=== PATIENT | female | born 1980 ===

== ENCOUNTER 2017-11-15 10:03 | Emergency (ER) | payer MEDICAID ==
[2017-11-15 10:19] VITALS: RESP 18; TEMP 98; O2SAT 100
[2017-11-15 10:20] VITALS: BMI 23.5
--- NOTE | 2017-11-15 12:06 | ED PDOC ---
HPI: Female Pain Time Seen by Provider: 11/15/17 10:23 Chief Complaint (Nursing): Abdominal Pain Chief Complaint (Provider): lower abdominal pain and painful urination History Per: Patient History/Exam Limitations: no limitations Onset/Duration Of Symptoms: Days (x5, since Wednesday) Current Symptoms Are (Timing): Still Present Quality Of Discomfort: "Pain" Additional Complaint(s): Tanya Aragon is a 36 year old female, with no significant past medical history, who presents to the emergency department complaining of lower abdominal pain and painful urination onset since Wednesday. Patient reports pain with urination but not burning and also states she notices the pain when walking. Patient states for the last week or so she has noted anal pain when going to bathroom and wiping. She denies any vaginal discharge or bleeding, nausea, vomit, hematuria or sick contacts. Patient recently moved here from [facility]. LMP July 19 but states she has taken multiple negative test. No further medical complaints. PMD: None provided. Last Menstral Period: July 19 Past Medical History Reviewed: Historical Data, Nursing Documentation, Vital Signs Vital Signs: Last Vital Signs Temp 98 F 11/15/17 10:18 Pulse 63 11/15/17 10:18 Resp 18 11/15/17 10:18 BP 104/59 L 11/15/17 10:18 Pulse Ox 100 11/15/17 10:18 - Medical History PMH: No Chronic Diseases - Family History Family History: States: Unknown Family Hx - Home Medications Home Medications: Ambulatory Orders Medication Instructions Recorded Naproxen 500 mg PO BID #28 ect 11/15/17 - Allergies Allergies/Adverse Reactions: Allergies Allergy/AdvReac Type Severity Reaction Status Date / Time No Known Allergies Allergy Verified 11/15/17 11:11 Review of Systems ROS Statement: Except As Marked, All Systems Reviewed And Found Negative Gastrointestinal: Positive for: Abdominal Pain (lower ). Negative for: Nausea, Vomiting Genitourinary Female: Positive for: Other (painful urination and anal pain). Negative for: Hematuria, Vaginal Discharge, Vaginal Bleeding Physical Exam - Reviewed Nursing Documentation Reviewed: Yes Vital Signs Reviewed: Yes - Physical Exam Appears: Positive for: No Acute Distress Head Exam: Positive for: ATRAUMATIC, NORMAL INSPECTION, NORMOCEPHALIC Skin: Positive for: Normal Color, Warm, Dry Eye Exam: Positive for: Normal appearance, EOMI, PERRL Neck: Positive for: Painless ROM Cardiovascular/Chest: Positive for: Regular Rate, Rhythm. Negative for: Murmur Respiratory: Positive for: Normal Breath Sounds. Negative for: Respiratory Distress Gastrointestinal/Abdominal: Positive for: Soft, Tenderness (bilateral lower quadrant and suprapubic tenderness on palpation) Pelvic Exam: Positive for: No Cerv. Motion Tender, Discharge (appearance of physiologic discharge.), Tender Adnexa (Palpation of adnexa elicits pain bilaterally, worst on the right which patient describes same pain as palpation of abdomen), Other (Cervix looks enlarged. However, no erythema, bleeding or discharge from cervix) Back: Positive for: Normal Inspection. Negative for: L CVA Tenderness, R CVA Tenderness Rectal: Positive for: Hemorrhoids (External rectal shows external non-inflammed , non-thrombosed hemorrhoid. No bleeding or rectal discharge) Extremity: Positive for: Normal ROM (upper and lower extremities). Negative for : Deformity, Swelling Neurologic/Psych: Positive for: Alert, Oriented - Laboratory Results Result Diagrams: 11/15/17 12:20 11/15/17 12:20 - ECG O2 Sat by Pulse Oximetry: 100 (RA) Pulse Ox Interpretation: Normal Medical Decision Making Medical Decision Making: Time: 10:23 Initial Impression: Work up for abdominal pain most likely caused by UTI. Labs, UA sent. Will consider imaging if pain not improved and no UTI. Initial Plan: --VBG --CMP --Lipase --CBC w/ differential --PTT --PT --Chest portable [RAD] --Toradol 30 mg IVP --Urine --UA --Reevaluation 13:30 -Labs and UA are normal. Will work up for ovarian or adnexal pathology, GC- Chlamydia swab sent and CT of abdomen/pelvis. Patient also shows transvaginal US paperwork from x1 month ago on 10/15 which she received as part of work up due to amenorrhea. US was normal, however she wasn't having symptoms when US was done. 15:44 CXR FINDINGS: LUNGS: No active pulmonary disease. PLEURA: No significant pleural effusion identified, no pneumothorax apparent. CARDIOVASCULAR: Normal. OSSEOUS STRUCTURES: No significant abnormalities. VISUALIZED UPPER ABDOMEN: Normal. OTHER FINDINGS: None. IMPRESSION: No active disease. Time: 17:[address] FINDINGS: LOWER THORAX: Unremarkable. LIVER: Mild hepatic steatosis. No gross lesion or ductal dilatation. GALLBLADDER AND BILE DUCTS: Unremarkable. PANCREAS: Unremarkable. No gross lesion or ductal dilatation. SPLEEN: Unremarkable. ADRENALS: Unremarkable. No mass. KIDNEYS AND URETERS: Unremarkable. No hydronephrosis. No solid mass. VASCULATURE: Unremarkable. No aortic aneurysm. BOWEL: Prominent amount of retained colonic stool. No obstruction. No gross mural thickening. APPENDIX: Normal appendix. PERITONEUM: Unremarkable. No free fluid. No free air. LYMPH NODES: Unremarkable. No enlarged lymph nodes. BLADDER: Unremarkable. REPRODUCTIVE: Right ovarian follicle measuring 2.2 x 1.6 cm. BONES: No acute fracture. Round sclerotic density in the left L4 vertebral body, likely bone island. OTHER FINDINGS: None. IMPRESSION: Dominant right ovarian follicle measuring up to 2.2 cm. Normal appendix. Time: 18:[address], labs and urine with patient. She understands at this time there are no abnormalities found. Patient expressed concern that she has not had her period since June and is wondering if pain is related. Provider explained that there is no known reason for pain or missed periods, but patient is advised to follow up with [facility]. Patient states pain has improved after pain medications in the emergency department. Patient understands that if pain worsens or new symptoms develop, she has to return to the emergency department. Patient prescribed Naproxen. ----- Scribe Attestation: Documented by Michael Lopez, acting as a scribe for Cassidy Deng MD. Provider Scribe Attestation: All medical record entries made by the Scribe were at my direction and personally dictated by me. I have reviewed the chart and agree that the record accurately reflects my personal performance of the history, physical exam, medical decision making, and the department course for this patient. I have also personally directed, reviewed, and agree with the discharge instructions and disposition. Disposition - Clinical Impression Clinical Impression: Abdominal pain in female - Disposition Referrals: [facility] [Outside] [facility] [Outside] Disposition Time: 18:45 Condition: STABLE Additional Instructions: Return to the emergency department if you develop worsened pain, fever, nausea, vomiting, vaginal bleeding, or other new symptoms. Take Naproxen as needed for pain. Call to schedule a follow up appointment in the [facility] using the information in your discharge paper work. Prescriptions: Naproxen 500 mg PO BID #28 ect Instructions: Acute Abdomen (Belly Pain), Adult (DC) Forms: [email or web address] (Polish), [email or web address] (Amharic) Print Language: LIBYAN
[2017-11-15 12:33] LABS: VENOUS BLOOD GAS BASE EXCESS 4.8 mmol/L (0.0-2.0); VENOUS BLOOD GAS PCO2 60 mmHg (40-60); VENOUS BLOOD GAS PO2 14 mm/Hg (30-55); VENOUS BLOOD PH 7.34 (7.32-7.43)
[2017-11-15 12:34] LABS: BASO # 0.1 K/uL (0.0-0.2); BASO % 0.7 % (0.0-2.0); EOS # 0.1 K/uL (0.0-0.7); EOS % 1.5 % (0.0-4.0); HEMOGLOBIN 13.8 g/dL (12.0-16.0); LYMPH # 1.9 K/uL (1.0-4.3); LYMPH % 20.3 % (20.0-40.0); MEAN CELL VOLUME 89.5 fl (81.0-99.0); MEAN CORPUSCULAR HEMOGLOBIN 30.4 pg (27.0-31.0); MEAN CORPUSCULAR HGB CONC 33.9 g/dL (33.0-37.0); MEAN PLATELET VOLUME 9.5 fl (7.2-11.7); MONO # 0.5 K/uL (0.0-0.8); MONO % 5.5 % (0.0-10.0); NEUT # 6.6 K/uL (1.8-7.0); NRBC % 0.1 % (0.0-0.0); RBC 4.54 Mil/uL (3.80-5.20); RED CELL DISTRIBUTION WIDTH 12.7 % (11.5-14.5); WHITE BLOOD COUNT 9.2 K/uL (4.8-10.8)
[2017-11-15 12:35] LABS: SQUAMOUS EPITHIAL 1 /hpf (0-5); URINE BILIRUBIN NEGATIVE (NEGATIVE); URINE BLOOD SMALL (NEGATIVE); URINE CLARITY CLEAR (Clear); URINE COLOR STRAW (YELLOW); URINE GLUCOSE (UA) NEG (Normal); URINE LEUKOCYTE ESTERASE NEG Leu/uL (Negative); URINE PROTEIN NEGATIVE (NEGATIVE); URINE UROBILINOGEN 0.2-1.0 mg/dL (0.2-1.0)
[2017-11-15 12:41] LABS: BLOOD UREA NITROGEN 11 mg/dl (7-17); GFR NON-AFRICAN AMERICAN > 60
[2017-11-15 12:42] LABS: ALB/GLOB RATIO 1.3 (1.0-2.1); ALBUMIN 4.7 g/dL (3.5-5.0); ALT/SGPT 40 U/L (9-52); AST/SGOT 34 U/L (14-36); CALCIUM 9.6 mg/dL (8.4-10.2); LIPASE 75 U/L (23-300)
[2017-11-15 12:49] LABS: PROTHROMBIN TIME 11.2 Seconds (9.8-13.1)
[2017-11-15 12:52] LABS: PARTIAL THROMBOPLASTIN TIME 31.3 Seconds (25.6-37.1)
[2017-11-15] MEDS ORDERED: Iohexol 240 (50 ml) PO STA (13:22)
[2017-11-15] MEDS ORDERED: Iohexol 240 (50 ml) ONE (14:22)
--- NOTE | 2017-11-15 15:45 | RAD ---
Date of service: 11/15/2017 HISTORY: possible admission COMPARISON: No prior FINDINGS: LUNGS: No active pulmonary disease. PLEURA: No significant pleural effusion identified, no pneumothorax apparent. CARDIOVASCULAR: Normal. OSSEOUS STRUCTURES: No significant abnormalities. VISUALIZED UPPER ABDOMEN: Normal. OTHER FINDINGS: None. IMPRESSION: No active disease.
[2017-11-15] MEDS ORDERED: Iohexol 300 100 ML IJ ONE (16:28)
[2017-11-15] MEDS ORDERED: Sodium Chloride 0.9% 50 ML IV ONE (16:29)
--- NOTE | 2017-11-15 17:19 | CT ---
Date of service: 11/15/2017 PROCEDURE: CT Abdomen and Pelvis with contrast HISTORY: Lower abdominal pain, worse right COMPARISON: None. TECHNIQUE: Contrast dose: 90 mL Omnipaque 300 Radiation dose: Total exam DLP = 345.1 mGy-cm. This CT exam was performed using one or more of the following dose reduction techniques: Automated exposure control, adjustment of the mA and/or kV according to patient size, and/or use of iterative reconstruction technique. FINDINGS: LOWER THORAX: Unremarkable. LIVER: Mild hepatic steatosis. No gross lesion or ductal dilatation. GALLBLADDER AND BILE DUCTS: Unremarkable. PANCREAS: Unremarkable. No gross lesion or ductal dilatation. SPLEEN: Unremarkable. ADRENALS: Unremarkable. No mass. KIDNEYS AND URETERS: Unremarkable. No hydronephrosis. No solid mass. VASCULATURE: Unremarkable. No aortic aneurysm. BOWEL: Prominent amount of retained colonic stool. No obstruction. No gross mural thickening. APPENDIX: Normal appendix. PERITONEUM: Unremarkable. No free fluid. No free air. LYMPH NODES: Unremarkable. No enlarged lymph nodes. BLADDER: Unremarkable. REPRODUCTIVE: Right ovarian follicle measuring 2.2 x 1.6 cm. BONES: No acute fracture. Round sclerotic density in the left L4 vertebral body, likely bone island. OTHER FINDINGS: None. IMPRESSION: Dominant right ovarian follicle measuring up to 2.2 cm. Normal appendix.
[2017-11-15 18:45] VITALS: BP 110/66; PULSE 70
== END 2017-11-15 18:44 | disposition home or self-care (01) ==
LOC: H.ER 10:03
DX: R10.2 Pelvic and perineal pain (principal)
CPT/HCPCS: 71045; 74177; 80053; 81003; 81025; 82803; 83690; 85025; 85610; 85730; 87491; 87591; 96374; 99284; J1885; Q9966; Q9967